=== PATIENT | male | born 1990 | race Caucasian/White ===

== ENCOUNTER 2019-01-09 18:27 | Emergency (ER) | payer MEDICAID ==
[~2019-01-09] VITALS: Ht 188 cm; Wt 90.7 kg
[2019-01-09 18:36] VITALS: BP_SYST 139
[2019-01-09] MEDS ORDERED: HYDROcodone/ACETAMIN 5-325 MG TAB (NORCO/ VICODIN) PO ONE (19:15)
[2019-01-09 19:25] VITALS: BP_SYST 142
== END 2019-01-09 19:26 | disposition home or self-care (01) ==
LOC: SED 18:27
DX: M79.641 Pain in right hand (principal); R51 Headache; G89.29 Other chronic pain; R03.0 Elevated blood-pressure reading, without diagnosis of hypertension
CPT/HCPCS: 99283

== ENCOUNTER 2019-02-06 21:46 | Emergency (ER) | payer MEDICAID ==
[~2019-02-06] VITALS: Ht 185.4 cm; Wt 99.8 kg
[2019-02-06 21:50] VITALS: BP_SYST 141
[2019-02-06 23:17] LABS: BASOPHILS % (AUTO) 0.5 % (0.0-2.0); EOSINOPHILS # (AUTO) 0.4 K/uL (0.0-0.4); EOSINOPHILS % (AUTO) 4.7 % (0.0-4.0); HEMATOCRIT 43.1 % (36-54); HEMOGLOBIN 14.5 g/dL (14.0-18.0); LYMPHOCYTES # (AUTO) 1.4 K/uL (1.0-5.5); LYMPHOCYTES % (AUTO) 15.1 % (20.5-51.5); MEAN CORPUSCULAR HEMOGLOBIN 29 pg (27-31); MEAN CORPUSCULAR HGB CONC 34 % (32-36); MEAN CORPUSCULAR VOLUME 86 fL (79.0-98.0); MONOCYTES # (AUTO) 0.7 K/uL (0.0-1.0); MONOCYTES % (AUTO) 7.7 % (1.7-9.3); NEUTROPHILS # (AUTO) 6.7 K/uL (1.8-7.7); PLATELET COUNT (AUTO) 211 K/uL (130-430); RED BLOOD CELL COUNT(AUTO) 5.01 MIL/uL (4.2-6.2); RED CELL DISTRIBUTION WIDTH 14.6 % (9.0-15.0); WHITE BLOOD COUNT (AUTO) 9.4 K/uL (4.8-10.8)
[2019-02-06 23:23] LABS: BILIRUBIN,URINE NEGATIVE (NEGATIVE); BLOOD, URINE NEGATIVE (NEGATIVE); CLARITY/URINE CLEAR (CLEAR); COLOR,URINE YELLOW (YELLOW); GLUCOSE,URINE NEGATIVE (NEGATIVE); KETONES,URINE NEGATIVE (NEGATIVE); LEUKOCYTE ESTERASE ,URINE NEGATIVE (NEGATIVE); NITRITE, URINE NEGATIVE (NEGATIVE); PROTEIN URINE NEGATIVE (NEGATIVE); UROBILINOGEN,URINE 0.2 (0.2-1.0)
[2019-02-06] MEDS ORDERED: MORPHINE 4 MG/ML INJ. SYRINGE IVP ONE (23:30)
[2019-02-06] MEDS ORDERED: ONDANSETRON HCL 4 MG/2 ML VIAL IVP ONE (23:30)
[2019-02-06 23:31] LABS: CALCIUM 8.6 mg/dL (8.4-11.0); CREATININE 1.16 mg/dL (0.55-1.30); POTASSIUM 3.8 mmol/L (3.5-5.1)
[2019-02-06 23:33] LABS: PROTHROMBIN TIME 9.9 SECS (9.5-12.5)
[2019-02-06 23:36] LABS: ALBUMIN 3.7 g/dL (3.4-4.8); TOTAL BILIRUBIN 0.6 mg/dL (0.0-1.0)
[2019-02-06] MEDS ORDERED: ONDANSETRON HCL 4 MG/2 ML VIAL ONE (23:44)
[2019-02-07] MEDS ORDERED: MORPHINE 4 MG/ML INJ. SYRINGE IVP ONE (01:30)
[2019-02-07] MEDS ORDERED: ONDANSETRON HCL 4 MG/2 ML VIAL IVP ONE (01:30)
[2019-02-07 01:52] VITALS: BP_SYST 128
== END 2019-02-07 01:52 | disposition home or self-care (01) ==
LOC: SED 21:46
DX: N43.3 Hydrocele, unspecified (principal)
CPT/HCPCS: 36415; 74176; 76870; 80053; 81003; 82150; 83690; 85025; 85610; 96374; 96375; 96376; 99284; J2270 ×2; J2405 ×2

== ENCOUNTER 2019-03-17 11:45 | Emergency (ER) | payer MEDICAID ==
[~2019-03-17] VITALS: Ht 185.4 cm; Wt 113.4 kg
[2019-03-17 11:51] VITALS: BP_SYST 123
--- NOTE | 2019-03-17 11:55 | NUR ---
Patient to ER bed 1 to gown for evaluation. Side rails up. Report given to Amrit MTZ.
--- NOTE | 2019-03-17 11:56 | NUR ---
Pt is here for c/o right 5th toe pain after accidentally kicking the furniture 2-3 days ago. Pt c/o pain 10/10, mild swelling, no redness, cap refill less than 2 seconds noted to toe, per pt, he pain increases when he bears weight.
--- NOTE | 2019-03-17 11:58 | NUR ---
Dr. Velez at bedside to assess pt.
[2019-03-17] MEDS ORDERED: KETOROLAC TROMETHAMINE 60 MG/2 ML VIAL IM ONE (12:30)
--- NOTE | 2019-03-17 12:56 | NUR ---
Patient given written and verbal discharge instructions and verbalizes understanding. ER MD discussed with patient the results and treatment provided. Patient in stable condition. ID arm band removed. Rx of tramadol 50mg, zofran and ibuprofen given. Patient educated on pain management and to follow up with PMD. Pain Scale 2.Opportunity for questions provided and answered. Medication side effect fact sheet provided.
[2019-03-17 12:58] VITALS: BP_SYST 118
== END 2019-03-17 12:58 | disposition home or self-care (01) ==
LOC: SED 11:45
DX: M79.674 Pain in right toe(s) (principal); W22.8XXA Striking against or struck by other objects, initial encounter; X58.XXXA Exposure to other specified factors, initial encounter; Y93.89 Activity, other specified; Y92.89 Other specified places as the place of occurrence of the external cause; Y99.8 Other external cause status
CPT/HCPCS: 29515; 73630; 96372; 99283; J1885

== ENCOUNTER 2019-06-03 18:10 | Emergency (ER) | payer MEDICAID ==
[~2019-06-03] VITALS: Ht 170.2 cm; Wt 113.4 kg
--- NOTE | 2019-06-03 18:24 | NUR ---
Patient to ER bed h1 for evaluation. Side rails up.
--- NOTE | 2019-06-03 18:27 | NUR ---
ER Dr. Wise at bedside examining patient.
[2019-06-03] MEDS ORDERED: IBUPROFEN 600 MG TABLET PO ONE (18:30)
[2019-06-03] MEDS ORDERED: DIPH-TET-PERTUS Vaccine 0.5 ML VIAL (ADACEL) I.M. ONE (18:30)
[2019-06-03] MEDS ORDERED: ceFAZolin SODIUM 1 GM VIAL IM ONE (18:30)
[2019-06-03 18:33] VITALS: BP_SYST 164
--- NOTE | 2019-06-03 18:34 | NUR ---
PT AAOx4 ambulated into ED c/o bilateral hand pain and swelling x 2 days. Pt speaking on cell phone and ignores questioning from RN. Hand swelling noted. No weeping/ active bleeding noted to site. Denies trauma. No other injuries/complaints per pt/noted. Will continue to monitor.
--- NOTE | 2019-06-03 18:51 | NUR ---
Medication administered. Pt tolerated well. No adverse reactions noted.
[2019-06-03 19:05] VITALS: BP_SYST 136
--- NOTE | 2019-06-03 19:05 | NUR ---
Patient given written and verbal discharge instructions and verbalizes understanding. ER MD discussed with patient the results and treatment provided. Patient in stable condition. ID arm band removed. Rx of Keflex and Tramadol given. Patient educated on pain management and to follow up with PMD. Pain Scale 0/10 Opportunity for questions provided and answered. Medication side effect fact sheet provided.
[2019-06-03] MEDS ORDERED: BACITRACIN 1 GM OINT TP ONE (19:18)
== END 2019-06-03 19:05 | disposition home or self-care (01) ==
LOC: SED 18:10
DX: S01.80XA Unspecified open wound of other part of head, initial encounter (principal); S61.204A Unspecified open wound of right ring finger without damage to nail, initial encounter; L03.011 Cellulitis of right finger; W25.XXXA Contact with sharp glass, initial encounter; Y93.89 Activity, other specified; Y92.89 Other specified places as the place of occurrence of the external cause; Y99.8 Other external cause status
CPT/HCPCS: 90471; 90715; 96372; 99283; J0690

== ENCOUNTER 2019-07-06 14:51 | Emergency (ER) | payer MEDICAID ==
[~2019-07-06] VITALS: Ht 185.4 cm; Wt 99.8 kg
[2019-07-06 15:01] VITALS: BP_SYST 155
--- NOTE | 2019-07-06 15:05 | NUR ---
Patient triaged and placed in waiting room. VSS and patient appears in no acute distress at this time. Accompanied by self, awaiting available bed, and MD notified of need for MSE.
--- NOTE | 2019-07-06 16:32 | NUR ---
Patient to ER bed 04 to gown for evaluation. Side rails up.
[2019-07-06] MEDS ORDERED: HYDROcodone/ACETAMIN 7.5-325 MG TAB PO ONE (16:45)
[2019-07-06] MEDS ORDERED: KETOROLAC TROMETHAMINE 60 MG/2 ML VIAL IM ONE (16:45)
[2019-07-06] MEDS ORDERED: cefTRIAXone 1 GM in LIDOCAINE 1%, 20 ML MDV 2.1 ML IM ONE (16:45)
--- NOTE | 2019-07-06 17:00 | NUR ---
Received patient seated in the edge of the bed, cc of toothache. denies nause, vomiting. vital sign stable, afebrile. assessment done. no other concerned noted.
[2019-07-06 18:06] VITALS: BP_SYST 150
--- NOTE | 2019-07-06 18:07 | NUR ---
Patient given written and verbal discharge instructions and verbalizes understanding. ER PEDIATRIC IMMUNOLOGIST luis m jolly discussed with patient the results and treatment provided. Patient in stable condition. ID arm band removed. IV catheter removed intact and dressing applied, no active bleeding. Rx of norco, keflex, motrin given. Patient educated on pain management and to follow up with PMD. Pain Scale 2. Opportunity for questions provided and answered. Medication side effect fact sheet provided. waiting for christine ruiz to pick him up at the lobby.
== END 2019-07-06 18:06 | disposition home or self-care (01) ==
LOC: SED 14:51
DX: K08.89 Other specified disorders of teeth and supporting structures (principal); R03.0 Elevated blood-pressure reading, without diagnosis of hypertension
CPT/HCPCS: 96372; 99283; J0696; J1885; J2001

== ENCOUNTER 2019-07-13 14:54 | Emergency (ER) | payer MEDICAID ==
[~2019-07-13] VITALS: Ht 182.9 cm; Wt 99.8 kg
[2019-07-13 15:16] VITALS: BP_SYST 149
--- NOTE | 2019-07-13 17:00 | NUR ---
Patient to ER bed H2 to gown for evaluation. Side rails up.
--- NOTE | 2019-07-13 17:02 | NUR ---
Patient arrived in the ED c/o jaw pain, bilateral earaches and fevers that started last night - was given Tramadol for it but he's getting headaches when he take it. Denied any nausea and vomiting. Patient is alert and oriented x4, respirations even and unlabored, speaking in full sentences and ambulating with a steady gait. VSS, pain level 10/10. Informed of the wait time. INstructed to notify ED staff for any changes in condition or wosrening of symptoms. Patient verbalized understanding.
--- NOTE | 2019-07-13 17:05 | NUR ---
ER Dr. Marie at bedside examining patient.
--- NOTE | 2019-07-13 17:28 | NUR ---
Patient given written and verbal discharge instructions and verbalizes understanding. ER MD discussed with patient the results and treatment provided. Patient in stable condition. ID arm band removed. Rx of [place] and Clindamycin given. Patient educated on pain management and to follow up with PMD. Pain Scale 10/10. Opportunity for questions provided and answered. Medication side effect fact sheet provided.
[2019-07-13 17:30] VITALS: BP_SYST 132
== END 2019-07-13 17:30 | disposition home or self-care (01) ==
LOC: SED 14:54
DX: K62.89 Other specified diseases of anus and rectum (principal); K08.89 Other specified disorders of teeth and supporting structures
CPT/HCPCS: 99283

== ENCOUNTER 2019-09-30 12:27 | Emergency (ER) | payer MEDICAID ==
[~2019-09-30] VITALS: Ht 167.6 cm; Wt 90.7 kg
[2019-09-30 12:37] VITALS: BP_SYST 151
[2019-09-30 13:01] VITALS: BP_SYST 146
== END 2019-09-30 13:03 | disposition home or self-care (01) ==
LOC: SED 12:27
DX: J32.9 Chronic sinusitis, unspecified (principal); F17.200 Nicotine dependence, unspecified, uncomplicated
CPT/HCPCS: 99283

== ENCOUNTER 2020-02-12 03:17 | Emergency (ER) | payer MEDICAID ==
[~2020-02-12] VITALS: Ht 185.4 cm; Wt 108.9 kg
[2020-02-12 03:25] VITALS: BP_SYST 137
[2020-02-12] MEDS ORDERED: KETOROLAC TROMETHAMINE 60 MG/2 ML VIAL IM ONE (03:45)
[2020-02-12] MEDS ORDERED: AMOXICILLIN 500 MG CAPSULE PO ONE (03:45)
[2020-02-12 04:30] VITALS: BP_SYST 137
== END 2020-02-12 04:30 | disposition home or self-care (01) ==
LOC: SED 03:17
DX: J32.9 Chronic sinusitis, unspecified (principal); H66.91 Otitis media, unspecified, right ear; K05.10 Chronic gingivitis, plaque induced
CPT/HCPCS: 96372; 99283; J1885

== ENCOUNTER 2020-03-09 20:06 | Emergency (ER) | payer MEDICAID ==
[~2020-03-09] VITALS: Ht 188 cm; Wt 90.7 kg
[2020-03-09 20:15] VITALS: BP_SYST 151
[2020-03-09] MEDS: NACL 0.9% 1,000 ML IV ONE (20:40)
[2020-03-09] MEDS: PROCHLORPERAZINE EDISYLATE 10 MG/2 ML VIAL IVP ONE (20:41)
[2020-03-09] MEDS: NORMAL SALINE 5 ML DISP.SYRIN IVF SCH (20:41)
[2020-03-09] MEDS: KETOROLAC TROMETHAMINE 15 MG VIAL IVP ONE (20:43)
[2020-03-09] MEDS: HYDROcodone/ACETAMIN 5-325 MG TAB (NORCO/ VICODIN) PO ONE (20:44)
[2020-03-09 20:56] LABS: BASOPHILS # (AUTO) 0.1 K/uL (0.0-0.2); BASOPHILS % (AUTO) 1.6 % (0.0-2.0); EOSINOPHILS # (AUTO) 0.5 K/uL (0.0-0.4); EOSINOPHILS % (AUTO) 7.6 % (0.0-4.0); HEMATOCRIT 47.9 % (36-54); HEMOGLOBIN 16.4 g/dL (14.0-18.0); LYMPHOCYTES # (AUTO) 1.6 K/uL (1.0-5.5); LYMPHOCYTES % (AUTO) 25.3 % (20.5-51.5); MEAN CORPUSCULAR HEMOGLOBIN 29 pg (27-31); MEAN CORPUSCULAR HGB CONC 34 % (32-36); MEAN CORPUSCULAR VOLUME 85 fL (79.0-98.0); MONOCYTES # (AUTO) 0.8 K/uL (0.0-1.0); MONOCYTES % (AUTO) 11.6 % (1.7-9.3); NEUTROPHILS # (AUTO) 3.5 K/uL (1.8-7.7); NEUTROPHILS % (AUTO) 53.9 % (40.0-70.0); PLATELET COUNT (AUTO) 204 K/uL (130-430); RED BLOOD CELL COUNT(AUTO) 5.66 MIL/uL (4.2-6.2); RED CELL DISTRIBUTION WIDTH 14.2 % (9.0-15.0); WHITE BLOOD COUNT (AUTO) 6.5 K/uL (4.8-10.8)
[2020-03-09 21:01] LABS: CALCIUM 9.3 mg/dL (8.4-11.0); CREATININE 0.87 mg/dL (0.55-1.30); POTASSIUM 3.6 mmol/L (3.5-5.1)
[2020-03-09 21:04] LABS: PROTHROMBIN TIME 9.9 SECS (9.5-12.5)
[2020-03-09 21:13] LABS: ALBUMIN 3.8 g/dL (3.4-4.8); TOTAL BILIRUBIN 0.3 mg/dL (0.0-1.0)
== END 2020-03-09 21:16 | disposition left against medical advice (07) ==
LOC: SED 20:06
DX: G43.901 Migraine, unspecified, not intractable, with status migrainosus (principal)
CPT/HCPCS: 36415; 80053; 85025; 85610; 96361; 96374; 96375; 99284; J0780; J1885; J7030